=== PATIENT | male | born 1990 | race Two or more races ===

== ENCOUNTER 2022-08-01 01:52 | Emergency (ER) | payer OTHER ==
[~2022-08-01] VITALS: Ht 177.8 cm; Wt 100.0 kg
[2022-08-01 02:05] VITALS: BP 129/52
[2022-08-01 02:38] LABS: BASOPHILS % (AUTO) 0.8 % (0.0-2.0); EOSINOPHILS % (AUTO) 0.4 % (1.0-6.0); HEMATOCRIT 42.8 % (41-53); HEMOGLOBIN 14.5 g/dL (13.5-17.5); LYMPHOCYTES # (AUTO) 1.7 K/uL (1.0-4.8); LYMPHOCYTES % (AUTO) 17.2 % (22.0-44.0); MEAN CORPUSCULAR HEMOGLOBIN 29.6 pg (26.0-34.0); MEAN CORPUSCULAR HGB CONC 33.8 G/dL (31.0-37.0); MEAN CORPUSCULAR VOLUME 88 fL (80-100); MONOCYTES # (AUTO) 1.1 K/uL (0.1-1.0); MONOCYTES % (AUTO) 10.5 % (2.0-9.0); NEUTROPHILS # (AUTO) 7.1 K/uL (1.8-7.7); NEUTROPHILS % (AUTO) 71.1 % (40.0-70.0); PLATELET COUNT (AUTO) 219 K/uL (150-450); RED BLOOD CELL COUNT(AUTO) 4.89 MIL/uL (4.50-5.90)
[2022-08-01 02:40] LABS: ANION GAP 8 mmol/L (8-16); CALCIUM, TOTAL 8.4 mg/dL (8.8-10.5); CARBON DIOXIDE 28 mmol/L (22-29); CHLORIDE 104 mmol/L (98-107); CREATININE 0.64 mg/dL (0.60-1.30); GLUCOSE,RANDOM 101 mg/dL (70-110); POTASSIUM 3.7 mmol/L (3.5-5.1); SODIUM SERUM 140 mmol/L (136-145); UREA NITROGEN, BLOOD 9 mg/dL (7-18)
[2022-08-01 02:46] LABS: GLOMERULAR FILTR. RATE CALC > 60 mL/min (>60)
[2022-08-01 02:52] LABS: ALANINE AMINOTRANSFERASE 67 U/L (12-78); ALBUMIN 3.7 g/dL (3.4-5.0); ALKALINE PHOSPHATASE 78 U/L (46-116); ASPARTATE AMINOTRANSFERASE 38 U/L (15-37); BILIRUBIN,TOTAL 0.7 mg/dL (0.1-1.0); CREATINE KINASE, TOTAL ONLY 124 U/L (39-308); TOTAL PROTEIN, SERUM 6.8 g/dL (6.4-8.2)
[2022-08-01 02:56] LABS: PROTHROMBIN TIME 10.8 SEC (9.4-11.6)
[2022-08-01 03:00] LABS: B-TYPE NATRIURETIC PEPTIDE 6 pg/mL (0-100)
[2022-08-01] MEDS: AMOXICILLIN TRIHYDRATE 250 MG CAPSULE PO ONE (04:20)
[2022-08-01] MEDS ORDERED: AMOX250C4 PO (04:31)
== END 2022-08-01 05:25 ==
LOC: EMS 01:54
DX: M94.0 Chondrocostal junction syndrome [Tietze] (principal); H60.93 Unspecified otitis externa, bilateral; Z98.890 Other specified postprocedural states
CPT/HCPCS: 71045; 80053; 82550; 83880; 84484; 85025; 85610; 85730; 93005; 99285; 36415-L1; 36415-TC